=== PATIENT | male | born 1950 | race Caucasian/White ===

== ENCOUNTER → 2016-07-01 | Outpatient (CLI) | payer MEDICARE ==
[2016-07-01 10:09] LABS: ALBUMIN 3.6 GM/DL (3.2-5.2); ALKALINE PHOSPHATASE 84 U/L (45-117); ALT/SGPT 16 U/L (12-78); ANION GAP 8 MEQ/L (8-16); AST/SGOT 12 U/L (15-37); BILIRUBIN,TOTAL 0.7 MG/DL (0.2-1.0); BLOOD UREA NITROGEN 14 MG/DL (7-18); CALCIUM LEVEL 8.7 MG/DL (8.8-10.2); CARBON DIOXIDE LEVEL 29 MEQ/L (21-32); CHLORIDE LEVEL 107 MEQ/L (98-107); CHOLESTEROL LEVEL 238 MG/DL (<200); CREATININE FOR GFR 0.85 MG/DL (0.70-1.30); GLOMERULAR FILTRATION RATE > 60.0 (>49); GLUCOSE, FASTING 90 MG/DL (80-110); POTASSIUM SERUM 4.6 MEQ/L (3.5-5.1); SODIUM LEVEL 144 MEQ/L (136-145); TOTAL PROTEIN 6.6 GM/DL (6.4-8.2); TRIGLYCERIDES LEVEL 75 MG/DL (<150)
== END ==
LOC: M WUC 08:08
PROVIDERS: ATTEND Physician Assistant Medical
DX: E78.2 Mixed hyperlipidemia (principal); I10 Essential (primary) hypertension

== ENCOUNTER 2016-08-10 15:23 | Emergency (ER) | payer MEDICARE ==
[~2016-08-10] VITALS: Ht 172.7 cm; Wt 86.2 kg
[2016-08-10] MEDS ORDERED: LOSA25TA8 (15:43)
[2016-08-10] MEDS ORDERED: MONT10TA2 (15:43)
[2016-08-10] MEDS ORDERED: KETOROLAC 60 MG/2 ML VIAL (J1885) IM ONE (17:45)
[2016-08-10] MEDS ORDERED: PERCOCET 5MG/325MG TAB PO ONE (17:45)
[2016-08-10 18:06] VITALS: BP 168/92
[2016-08-10] MEDS ORDERED: OXYC1TAB23 PO (18:09)
--- NOTE | 2016-08-11 07:43 | REP ---
RIGHT CLAVICLE: 08/10/2016. Clinical history: Trauma. Findings: Two-view show a mid shaft displaced clavicular fracture with a full shaft width inferior displacement on one of the views for the lateral segment. There are degenerative changes more superiorly than inferiorly at the AC joint. No other visible fracture or focal lesion. Impression: 1. Mid shaft complete fracture of the clavicle with inferior displacement of the lateral fragment. No underlying lung abnormality, pneumothorax or other bone lesion. Signed by Cleve Bishop MD 08/11/2016 08:33 A
== END 2016-08-10 18:33 | disposition home or self-care (01) ==
LOC: M ED 16:07
DX: S42.021A Displaced fracture of shaft of right clavicle, initial encounter for closed fracture (principal); X50.9XXA Other and unspecified overexertion or strenuous movements or postures, initial encounter; Y92.019 Unspecified place in single-family (private) house as the place of occurrence of the external cause; Y93.43 Activity, gymnastics; Y99.8 Other external cause status; Z79.899 Other long term (current) drug therapy; I10 Essential (primary) hypertension
CPT/HCPCS: 73000; 96372; 99282; J1885

== ENCOUNTER → 2019-03-16 | Outpatient (REF) | payer MEDICARE ==
[~2019-03-16] MED LIST: LOSA25TA14; MONT10TA2; OXYC1TAB23 PO
== END ==
LOC: M LAB REF 13:34
PROVIDERS: ATTEND Physician Assistant
DX: R35.0 Frequency of micturition (principal)

== ENCOUNTER → 2019-04-21 | Outpatient (CLI) | payer MEDICARE, BC ==
[2019-04-21 18:10] LABS: APPEARANCE, URINE CLEAR (CLEAR); BACTERIA, URINE AUTO 3+ (NEGATIVE); BILIRUBIN, URINE AUTO NEGATIVE (NEGATIVE); BLOOD, URINE BLOOD 1+ (NEGATIVE); COLOR, URINE YELLOW (YELLOW); GLUCOSE, URINE (UA) AUTO NEGATIVE (NEGATIVE); KETONE, URINE AUTO NEGATIVE (NEGATIVE); LEUKOCYTE ESTERASE, URINE AUTO TRACE (NEGATIVE); MUCUS, URINE SMALL (NEGATIVE); NITRITE, URINE AUTO POSITIVE (NEGATIVE); PROTEIN, URINE AUTO NEGATIVE (NEGATIVE); RBC, URINE AUTO 2 /HPF (0-3); SPECIFIC GRAVITY URINE AUTO 1.017 (1.002-1.035); SQUAMOUS EPITHELIAL CELL UR AU 0 /HPF (0-6); UROBILINOGEN, URINE AUTO 0.2 mg/dL (0.0-2.0); WBC, URINE AUTO 21 /HPF (0-3)
== END ==
LOC: M PLALAB 15:51
PROVIDERS: ATTEND Nurse Practitioner Women's Health
DX: N40.0 Benign prostatic hyperplasia without lower urinary tract symptoms (principal); Z12.5 Encounter for screening for malignant neoplasm of prostate
CPT/HCPCS: 36415; 51798; 81001; 87088; 87186; G0103; G0463

== ENCOUNTER → 2019-05-21 | Outpatient (CLI) | payer MEDICARE, BC | LOC: M PLALAB 08:26 | PROVIDERS: ATTEND Nurse Practitioner Women's Health | DX: R97.20 Elevated prostate specific antigen [PSA] (principal) ==

== ENCOUNTER → 2019-07-12 | Outpatient (REF) | payer MEDICARE, BC ==
[~2019-07-12] MED LIST changes: -MONT10TA2; +MONT10TA4
[2019-07-12 17:43] LABS: APPEARANCE, URINE HAZY (CLEAR); BACTERIA, URINE AUTO 1+ (NEGATIVE); BILIRUBIN, URINE AUTO NEGATIVE (NEGATIVE); BLOOD, URINE BLOOD 1+ (NEGATIVE); COLOR, URINE YELLOW (YELLOW); GLUCOSE, URINE (UA) AUTO NEGATIVE (NEGATIVE); KETONE, URINE AUTO NEGATIVE (NEGATIVE); LEUKOCYTE ESTERASE, URINE AUTO TRACE (NEGATIVE); MUCUS, URINE SMALL (NEGATIVE); NITRITE, URINE AUTO POSITIVE (NEGATIVE); PROTEIN, URINE AUTO NEGATIVE (NEGATIVE); RBC, URINE AUTO 1 /HPF (0-3); SPECIFIC GRAVITY URINE AUTO 1.024 (1.002-1.035); SQUAMOUS EPITHELIAL CELL UR AU 0 /HPF (0-6); UROBILINOGEN, URINE AUTO 0.2 mg/dL (0.0-2.0); WBC, URINE AUTO 6 /HPF (0-3)
== END ==
LOC: M SMT 16:54
PROVIDERS: ATTEND Nurse Practitioner Women's Health
DX: N50.819 Testicular pain, unspecified (principal)

== ENCOUNTER → 2019-07-14 | Outpatient (CLI) | payer BC, MEDICARE ==
--- NOTE | 2019-07-15 08:29 | REP ---
Clinical: Right testicular/scrotal pain. Technique: Real time palencia scale and color Doppler evaluation using linear and curved array transducers. Findings: The bilateral testicles are normal in appearance and vascularity. The patient gives a history of prior vasectomy. The right epididymal tail is hyperemic and suggests epididymitis. Within the right epididymis, there is a 1.2 x 0.7 x 0.8 cm hypoechoic well-circumscribed and apparently avascular lesion which is nonspecific but may represent granuloma. The epididymi demonstrate tubular ectasia suspected spermatoceles along with small epididymal cysts measuring up to approximately 3 mm. Right testicle measures 3.3 x 2.4 x 3.0 cm. Left testicle measures 3.8 x 2.3 x 3.0 cm. Impression: 1. Hyperemic and right epididymis suggesting epididymitis and correlation is recommended. 2. Further findings as described above. 3. The testicles appear normal. No hydrocele. Electronically Signed by Wade Leo MD 07/15/2019 08:20 A
== END ==
LOC: M RAD 17:02
PROVIDERS: ATTEND Nurse Practitioner Women's Health
DX: N50.819 Testicular pain, unspecified (principal); N50.3 Cyst of epididymis

== ENCOUNTER → 2019-08-03 | Outpatient (REF) | payer BC, MEDICARE ==
[2019-08-03 17:55] LABS: APPEARANCE, URINE CLEAR (CLEAR); BACTERIA, URINE AUTO NEGATIVE (NEGATIVE); BILIRUBIN, URINE AUTO NEGATIVE (NEGATIVE); BLOOD, URINE BLOOD NEGATIVE (NEGATIVE); COLOR, URINE YELLOW (YELLOW); GLUCOSE, URINE (UA) AUTO NEGATIVE (NEGATIVE); KETONE, URINE AUTO NEGATIVE (NEGATIVE); LEUKOCYTE ESTERASE, URINE AUTO NEGATIVE (NEGATIVE); MUCUS, URINE SMALL (NEGATIVE); NITRITE, URINE AUTO NEGATIVE (NEGATIVE); PROTEIN, URINE AUTO NEGATIVE (NEGATIVE); RBC, URINE AUTO 1 /HPF (0-3); SPECIFIC GRAVITY URINE AUTO 1.026 (1.002-1.035); SQUAMOUS EPITHELIAL CELL UR AU 0 /HPF (0-6); UROBILINOGEN, URINE AUTO 0.2 mg/dL (0.0-2.0); WBC, URINE AUTO 0 /HPF (0-3)
== END ==
LOC: M SMT 16:54
PROVIDERS: ATTEND Nurse Practitioner Women's Health
DX: N45.1 Epididymitis (principal)

== ENCOUNTER → 2019-08-13 | Outpatient (CLI) | payer BC, MEDICARE ==
--- NOTE | 2019-08-13 19:05 | REP ---
HISTORY: History of BPH and UTI. COMPARISON: None. The right kidney measures 11.5 x 5.4 x 6.6 cm. The renal cortical echoes are within normal limits. Cortical medullary differentiation is within normal limits. There are no cystic or solid masses. There is no hydronephrosis. Left kidney measures 1.1 x 5 x 5.9 cm. The renal cortical echoes are within normal limits. Cortical medullary differentiation is within normal limits. There are no cystic or solid masses. There is no hydronephrosis. Pre and postvoid urinary bladder calculations were obtained along with Doppler interrogation to assess for uro-jet phenomenon at the UV junction. 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 The prevoid urinary bladder volume calculation is 113 mL and the postvoid urinary bladder volume calculation is 28.5 ml rendering a 25% postvoid residual. IMPRESSION: Renal ultrasonography is within normal limits. Limited pelvic ultrasound as described above. Electronically Signed by Mega Argueta DO 08/13/2019 07:12 P
--- NOTE | 2019-08-13 19:07 | REP ---
Dedicated ultrasonography of the urinary bladder was obtained. Please see the renal ultrasound examination for pre and postvoid urinary bladder volume calculations and description of transvesical imaging of the prostate gland. Images of the urinary bladder show some urinary bladder wall thickening, however, the urinary bladder is not completely distended. No intraluminal filling defects were noted. IMPRESSION: As above. Electronically Signed by Mega Argueta DO 08/13/2019 07:12 P
== END ==
LOC: M RAD 17:30
PROVIDERS: ATTEND Nurse Practitioner Women's Health
DX: N39.0 Urinary tract infection, site not specified (principal); N40.1 Benign prostatic hyperplasia with lower urinary tract symptoms

== ENCOUNTER → 2021-04-24 | Outpatient (CLI) | payer MEDICARE, BC ==
[~2021-04-24] MED LIST changes: +MONT10TA10; -MONT10TA4
[2021-04-24 10:58] LABS: ALBUMIN 3.6 GM/DL (3.2-5.2); ALT/SGPT 22 U/L (12-78); BILIRUBIN,TOTAL 0.7 MG/DL (0.2-1.0); BLOOD UREA NITROGEN 18 MG/DL (7-18); CALCIUM LEVEL 9.3 MG/DL (8.8-10.2); CARBON DIOXIDE LEVEL 29 MEQ/L (21-32); CHLORIDE LEVEL 107 MEQ/L (98-107); CHOLESTEROL LEVEL 228 MG/DL (<200); CREATININE FOR GFR 0.86 MG/DL (0.70-1.30); GLOMERULAR FILTRATION RATE > 60.0 (>42); GLUCOSE, FASTING 91 MG/DL (70-100); HDL CHOLESTEROL 76 MG/DL (>40); LDL CHOLESTEROL 140 MG/DL (<100); NON-HDL-C 152 MG/DL; POTASSIUM SERUM 4.8 MEQ/L (3.5-5.1); SODIUM LEVEL 141 MEQ/L (136-145); TOTAL PROTEIN 6.8 GM/DL (6.4-8.2); TRIGLYCERIDES LEVEL 59 MG/DL (<150)
== END ==
LOC: M WUC 08:06
PROVIDERS: ATTEND Nurse Practitioner Family
DX: I10 Essential (primary) hypertension (principal)

== ENCOUNTER → 2023-11-27 | Outpatient (REF) | payer MEDICARE, BC ==
[~2023-11-27] MED LIST changes: +LOSA25TA13; -LOSA25TA14; -MONT10TA10; +MONT10TA97
== END ==
LOC: M LAB REF 16:50
PROVIDERS: ATTEND Nurse Practitioner Family
DX: R82.90 Unspecified abnormal findings in urine (principal)

== ENCOUNTER → 2023-11-28 | Outpatient (CLI) | payer MEDICARE, BC ==
[2023-11-28 19:14] LABS: BASO # 0.1 10^3/uL (0.0-0.2); BASO % 0.7 % (0.0-1.0); EOS # 0.1 10^3/uL (0.0-0.5); EOS % 1.6 % (0.0-3.0); HEMATOCRIT 42.5 % (42.0-52.0); HEMOGLOBIN 13.8 g/dl (13.5-17.5); LYMPH # 2.1 10^3/uL (1.5-5.0); LYMPH % 29.2 % (24.0-44.0); MEAN CORPUSCULAR HEMOGLOBIN 29.9 pg (27.0-33.0); MEAN CORPUSCULAR HGB CONC 32.5 g/dl (32.0-36.5); MEAN CORPUSCULAR VOLUME 92.2 fl (80.0-96.0); MONO # 0.8 10^3/uL (0.0-0.8); NEUTROPHILS % 56.4 % (36.0-66.0); PLATELET COUNT, AUTOMATED 250 10^3/uL (150-450); RED BLOOD COUNT 4.61 10^6/uL (4.30-6.10)
[2023-11-28 19:45] LABS: ALBUMIN 3.7 G/DL (3.2-5.2); ALKALINE PHOSPHATASE 82 U/L (46-116); ALT/SGPT 12 U/L (7.0-40); AST/SGOT < 8 U/L (<34); BILIRUBIN,TOTAL 0.8 MG/DL (0.3-1.2); BLOOD UREA NITROGEN 11 MG/DL (9-23); CALCIUM LEVEL 9.4 MG/DL (8.3-10.6); CARBON DIOXIDE LEVEL 28 MMOL/L (20-31); CHLORIDE LEVEL 107 MMOL/L (98-107); CHOLESTEROL LEVEL 199 MG/DL (<200); CHOLESTEROL RISK RATIO 3.09 (<5); CREATININE FOR GFR 0.76 MG/DL (0.70-1.30); GLOMERULAR FILTRATION RATE > 60.0 (>42); GLUCOSE, FASTING 84 MG/DL (74-106); HDL CHOLESTEROL 64.2 MG/DL (>40); LDL CHOLESTEROL 122.4 MG/DL (<100); NON-HDL-C 134.8 MG/DL; POTASSIUM SERUM 3.8 MMOL/L (3.5-5.1); SODIUM LEVEL 140 MMOL/L (136-145); TOTAL PROTEIN 6.6 G/DL (5.7-8.2); TRIGLYCERIDES LEVEL 62 MG/DL (<150)
== END ==
LOC: M WUC 15:39
PROVIDERS: ATTEND Nurse Practitioner Family
DX: I10 Essential (primary) hypertension (principal); E78.5 Hyperlipidemia, unspecified

== ENCOUNTER → 2024-03-01 | Outpatient (CLI) | payer BC, MEDICARE ==
[2024-03-01 14:15] LABS: ALBUMIN 3.5 G/DL (3.2-5.2); ALKALINE PHOSPHATASE 84 U/L (40-129); ALT/SGPT 14 U/L (7.0-40); AST/SGOT 9 U/L (<34); BILIRUBIN,TOTAL 0.7 MG/DL (0.3-1.2); BLOOD UREA NITROGEN 12 MG/DL (9-23); CALCIUM LEVEL 9.5 MG/DL (8.3-10.6); CARBON DIOXIDE LEVEL 30 MMOL/L (20-31); CHLORIDE LEVEL 108 MMOL/L (98-107); CHOLESTEROL LEVEL 206 MG/DL (<200); CHOLESTEROL RISK RATIO 3.07 (<5); CREATININE FOR GFR 0.77 MG/DL (0.70-1.30); GLOMERULAR FILTRATION RATE > 60.0 (>42); GLUCOSE, FASTING 103 MG/DL (74-106); LDL CHOLESTEROL 126.4 MG/DL (<100); POTASSIUM SERUM 4.8 MMOL/L (3.5-5.1); SODIUM LEVEL 142 MMOL/L (136-145); TOTAL PROTEIN 6.7 G/DL (5.7-8.2); TRIGLYCERIDES LEVEL 63 MG/DL (<150)
== END ==
LOC: M WUC 08:03
PROVIDERS: ATTEND Nurse Practitioner Family
DX: I10 Essential (primary) hypertension (principal); E78.5 Hyperlipidemia, unspecified